=== PATIENT | male | born 1990 | race Caucasian/White ===

== ENCOUNTER 2016-09-08 10:24 | Emergency (ER) | payer MEDICAID, OTHER ==
[~2016-09-08] VITALS: Ht 177.8 cm; Wt 78.0 kg
[~2016-09-08 10:24] MED LIST: ERYT.5%O LEFT EYE
[2016-09-08 10:25] VITALS: BP 137/75; PULSE 75; RESP 16; TEMP 98.2; O2SAT 98
[2016-09-08] MEDS ORDERED: ERYTOIN10 LEFT EYE (11:06)
--- NOTE | 2016-09-08 11:08 | PD ---
HPI Chief Complaint: Eye Problems/Injury Time Seen by Provider: 10:35 Travel History International Travel<30 days: No Contact w/Intl Traveler<30days: No Traveled to known affect area: No History of Present Illness HPI 26-year-old male presents emergency department for evaluation of foreign body sensation in left eye times one day. 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 He reports last night upon examination of the eye he saw a small black speck in the left eye which she was unable to remove. He reports mild pain. No visual disturbances. No aggravating or alleviating factors. PFSH Past Medical History Medical History: Denies Significant Hx Tetanus Vaccination: < 5 Years Influenza Vaccination: No Past Surgical History Surgical History: No Previous Surgery Social History Alcohol Use: No Tobacco Use: Yes (1/2 PPD) Substance Use: No Allergies-Medications (Allergen,Severity, Reaction): Coded Allergies: No Known Allergies (Unverified , 09/08/16) Reported Meds & Prescriptions Reported Meds & Active Scripts Active Erythromycin Opth Oint 5 Mg/Gm Oint 1 Applic LEFT EYE QID Review of Systems Except as stated in HPI: all other systems reviewed are Neg General / Constitutional: No: Fever Eyes: No: Visual changes HENT: No: Headaches Cardiovascular: No: Chest Pain or Discomfort Respiratory: No: Shortness of Breath Gastrointestinal: No: Abdominal Pain Physical Exam Narrative GENERAL: Well-nourished, well-developed patient. SKIN: Focused skin assessment warm/dry. HEAD: Normocephalic. EYES: No scleral icterus. No injection or drainage. No hyphema. Left eye: Small corneal foreign body located at 3:00, cornea is clear, no fluorescein dye uptake, EOMs intact. Visual acuity within normal limits. NECK: Supple, trachea midline. No JVD or lymphadenopathy. CARDIOVASCULAR: Regular rate and rhythm without murmurs, gallops, or rubs. RESPIRATORY: Breath sounds equal bilaterally. No accessory muscle use. Data Data Last Documented VS Vital Signs Date Time Temp Pulse Resp B/P Pulse Ox O2 Delivery O2 Flow Rate FiO2 09/08/16 10:25 98.2 75 16 137/75 98 MDM Medical Decision Making Medical Screen Exam Complete: Yes Emergency Medical Condition: Yes Differential Diagnosis Corneal foreign body, corneal abrasion, corneal injury Narrative Course 26-year-old male presents emergency department for evaluation of foreign body sensation in left eye. On exam patient has small corneal foreign body which was easily removed with Q-tip after proparacaine administration. There is no fluorescein dye uptake. She will acuity left eye 20/20 5, right eye 20/25, both eyes 20/25. Patient will be treated prophylactically with erythromycin ophthalmic ointment. He was referred to ophthalmology for follow-up. Return precautions discussed. Patient verbalizes understanding and agrees to plan Procedures Procedure Narrative Corneal foreign body removal: Proparacaine administered to the left eye, Q-tip used and swiping fashion easily removed the corneal foreign body located at 3:00. Meza lamp exam with fluorescein dye examination performed after. No fluorescein dye uptake observed. Diagnosis Primary Impression: Corneal foreign body Qualified Code: T15.02XA - Corneal foreign body, left, initial encounter Referrals: Intelligence Intern Additional Instructions: Use the ophthalmic ointment as prescribed. Make an appointment for follow-up with ophthalmology this week. Return to the emergency department if he developed visual changes, eye pain or any new concerning symptoms. Scripts Erythromycin Opth Oint 5 Mg/Gm Oint1 Applic LEFT EYE QID #1 TUBE Ref 0 Prov:Macie Peña 09/08/16 Disposition: 01 DISCHARGE HOME Condition: Stable Macie Peña Sep 08, 2016 11:08
== END 2016-09-08 11:16 | disposition home or self-care (01) ==
LOC: NEPK 10:24
DX: T15.02XA Foreign body in cornea, left eye, initial encounter (principal); F17.200 Nicotine dependence, unspecified, uncomplicated; W22.8XXA Striking against or struck by other objects, initial encounter
CPT/HCPCS: 65220